=== PATIENT | male | born 1995 | race American Indian/Alaskan Native ===

== ENCOUNTER 2019-12-07 19:04 | Emergency (ER) | payer SELFPAY ==
[2019-12-07 19:14] VITALS: BP 133/87
--- NOTE | 2019-12-07 19:21 | Emergency Department Report ---
ED General Adult HPI - General Chief complaint: Skin Rash Stated complaint: SORE MOUTH/JAW PAIN/RASH Time Seen by Provider: 12/07/19 19:09 Source: patient Mode of arrival: Ambulatory Limitations: No Limitations - History of Present Illness Initial comments: 24 yo AA M Pt complains of lip swelling, irritation, and cracking x 4 days/ States burning and itching. Denies known allergens. Deneis any hx of DM2 or HIV. He rates his pain as a 4/10 in severity. He reports his symptoms initially improved with OTC creams and carmex , but are now worsening. Denies fever or drainage from rash -: Sudden Quality: constant - Related Data Previous Rx's Medication Instructions Recorded Last Taken Type Albuterol INH(or & Nicu Only) 1 puff IH Q4-6H PRN #1 inha 09/04/13 Unknown Rx [ProAir HFA Inhaler] Azithromycin [Zithromax Z-LEAH] 250 mg PO DAILY #6 tab 09/04/13 Unknown Rx Benzonatate [Tessalon Perle] 100 mg PO Q4-6H PRN #15 capsule 09/04/13 Unknown Rx Ibuprofen [Motrin] 800 mg PO TID PRN #20 tablet 09/04/13 Unknown Rx predniSONE [Deltasone] 1 tab PO BID #8 tablet 09/04/13 Unknown Rx Triamcinolone 0.1% [Kenalog 0.1% 1 applic TP TID 7 Days #1 tube 12/07/19 Unknown Rx CREAM] cephALEXin [Keflex] 500 mg PO TID 10 Days #30 cap 12/07/19 Unknown Rx Allergies Allergy/AdvReac Type Severity Reaction Status Date / Time No Known Allergies Allergy Unverified 09/03/13 22:12 ED Review of Systems ROS: Stated complaint: SORE MOUTH/JAW PAIN/RASH Other details as noted in HPI Constitutional: denies: chills, diaphoresis, fever, malaise ENT: denies: throat pain Skin: rash, lesions, pruritus. denies: change in color ED Past Medical Hx - Past Medical History Previous Medical History?: Yes Hx Psychiatric Treatment: Yes (Bipolar, Schizophrenia) - Surgical History Past Surgical History?: No - Social History Smoking Status: Current Every Day Smoker Substance Use Type: None - Medications Home Medications: Home Medications Medication Instructions Recorded Confirmed Last Taken Type Albuterol INH(or & Nicu Only) 1 puff IH Q4-6H PRN #1 inha 09/04/13 Unknown Rx [ProAir HFA Inhaler] Azithromycin [Zithromax Z-LEAH] 250 mg PO DAILY #6 tab 09/04/13 Unknown Rx Benzonatate [Tessalon Perle] 100 mg PO Q4-6H PRN #15 capsule 09/04/13 Unknown Rx Ibuprofen [Motrin] 800 mg PO TID PRN #20 tablet 09/04/13 Unknown Rx predniSONE [Deltasone] 1 tab PO BID #8 tablet 09/04/13 Unknown Rx Triamcinolone 0.1% [Kenalog 0.1% 1 applic TP TID 7 Days #1 tube 12/07/19 Unknown Rx CREAM] cephALEXin [Keflex] 500 mg PO TID 10 Days #30 cap 12/07/19 Unknown Rx ED Physical Exam - General Limitations: No Limitations General appearance: alert, in no apparent distress - Head Head exam: Present: atraumatic, normocephalic - Eye Eye exam: Present: normal appearance - ENT ENT exam: Present: other (dry, fissuring opening noted to corners of mouth with mild tenderness to palpation. No erythema, swelling, ro drainage noted.) - Neck Neck exam: Present: normal inspection - Respiratory Respiratory exam: Absent: respiratory distress - Cardiovascular Cardiovascular Exam: Present: regular rate - Neurological Exam Neurological exam: Present: alert, oriented X3 - Psychiatric Psychiatric exam: Present: normal affect, anxious - Skin Skin exam: Present: warm, dry, intact, normal color. Absent: rash ED Course Vital Signs 12/07/19 19:08 Temperature 97.5 F L Pulse Rate 101 H Respiratory 18 Rate Blood Pressure 133/87 O2 Sat by Pulse 99 Oximetry ED Medical Decision Making - Medical Decision Making Chelitis noted on exam. Pt denies DM2 or HIV. States he has been using all new products due to just getting out of long term. Will try topical steroid and keflex. PT also informed to obtain OTC clotrimazole and apply BID if symptoms do not improve. Recommend f/u with Dr. Macias in 3-5 days. Discussed signs and symptoms of worsening infection that should prompt immediate return to the ED in detail with pt who states understanding. Critical care attestation.: If time is entered above; I have spent that time in minutes in the direct care of this critically ill patient, excluding procedure time. ED Disposition Clinical Impression: Angular cheilitis Disposition: DC- TO HOME OR SELFCARE Is pt being admited?: No Condition: Stable Instructions: Acute Rash (ED) Prescriptions: cephALEXin [Keflex] 500 mg PO TID 10 Days #30 cap Triamcinolone 0.1% [Kenalog 0.1% CREAM] 1 applic TP TID 7 Days #1 tube Referrals: JAREK MACIAS MD [Staff Physician] - 3-5 Days
== END 2019-12-07 19:36 | disposition home or self-care (01) ==
LOC: ED 19:04
DX: K13.0 Diseases of lips (principal); F25.0 Schizoaffective disorder, bipolar type; F17.200 Nicotine dependence, unspecified, uncomplicated; Z79.899 Other long term (current) drug therapy
CPT/HCPCS: 99282

== ENCOUNTER 2019-12-08 08:02 | Emergency (ER) | payer SELFPAY ==
[2019-12-08] MEDS ORDERED: BENZTROPINE 0.5 MG TAB PO ONE (08:37)
[2019-12-08] MEDS ORDERED: risperiDONE 1 MG TAB PO ONE (08:37)
--- NOTE | 2019-12-08 08:41 | Emergency Department Report ---
HPI - General Chief Complaint: Psych Time Seen by Provider: 12/08/19 08:25 - HPI HPI: Room 13 The patient is a 24-year-old male present with a chief complaint of auditory hallucinations. Patient has a history of schizophrenia states he suffers from auditory hallucinations. The patient states he was recently released from [facility] 12/04/2019 has not had any of his psychiatric meds since. Patient states his auditory hallucinations have worsened and voices today told him to kill himself. Patient states he decided to come to [facility] for admission but he was sent here for medical clearance first ED Past Medical Hx - Past Medical History Previous Medical History?: Yes Hx Psychiatric Treatment: Yes (Bipolar, Schizophrenia) - Surgical History Past Surgical History?: No - Family History Family history: no significant - Social History Smoking Status: Current Every Day Smoker (1 pack/day) Substance Use Type: Alcohol (Occasional), Cocaine, Other (Amphetamine) - Medications Home Medications: Home Medications Medication Instructions Recorded Confirmed Last Taken Type Albuterol INH(or & Nicu Only) 1 puff IH Q4-6H PRN #1 inha 09/04/13 Unknown Rx [ProAir HFA Inhaler] Azithromycin [Zithromax Z-LEAH] 250 mg PO DAILY #6 tab 09/04/13 Unknown Rx Benzonatate [Tessalon Perle] 100 mg PO Q4-6H PRN #15 capsule 09/04/13 Unknown Rx Ibuprofen [Motrin] 800 mg PO TID PRN #20 tablet 09/04/13 Unknown Rx predniSONE [Deltasone] 1 tab PO BID #8 tablet 09/04/13 Unknown Rx Triamcinolone 0.1% [Kenalog 0.1% 1 applic TP TID 7 Days #1 tube 12/07/19 Unknown Rx CREAM] cephALEXin [Keflex] 500 mg PO TID 10 Days #30 cap 12/07/19 Unknown Rx ED Review of Systems ROS: Stated complaint: MED CLEARANCE Other details as noted in HPI Constitutional: no symptoms reported Eyes: denies: eye pain ENT: denies: throat pain Respiratory: no symptoms reported Psychiatric: auditory hallucinations Physical Exam - Physical Exam Vital Signs: Vital Signs 12/08/19 08:07 Temperature 97.7 F Pulse Rate 104 H Respiratory 16 Rate Blood Pressure 134/86 [Left] O2 Sat by Pulse 98 Oximetry Physical Exam: GENERAL: The patient is well-developed well-nourished male sitting in chair not appearing to be in acute distress. [] HEENT: Normocephalic. Atraumatic. Extraocular motions are intact. Patient has moist mucous membranes. NECK: Supple. Trachea midline CHEST/LUNGS: Clear to auscultation. There is no respiratory distress noted. HEART/CARDIOVASCULAR: Regular. There is no tachycardia. There is no gallop rub or murmur. ABDOMEN: Abdomen is soft, nontender. Patient has normal bowel sounds. There is no abdominal distention. SKIN: There is no diaphoresis. NEURO: The patient is awake, alert, and oriented. The patient is cooperative. The patient has normal speech MUSCULOSKELETAL: There is no evidence of acute injury. ED Course Vital Signs 12/08/19 08:07 Temperature 97.7 F Pulse Rate 104 H Respiratory 16 Rate Blood Pressure 134/86 [Left] O2 Sat by Pulse 98 Oximetry ED Medical Decision Making - Lab Data Result diagrams: 12/08/19 08:23 12/08/19 08:23 Laboratory Tests 12/08/19 12/08/19 12/08/19 08:23 08:23 08:23 WBC RBC Hgb Hct MCV MCH MCHC RDW Plt Count [place] % (Auto) Add Manual Diff Total Counted Seg Neuts % (Manual) Band Neutrophils % Lymphocytes % (Manual) Reactive Lymphs % (Man) Monocytes % (Manual) Eosinophils % (Manual) Basophils % (Manual) Metamyelocytes % Myelocytes % Promyelocytes % Blast Cells % Nucleated RBC % Seg Neutrophils # Man Band Neutrophils # Lymphocytes # (Manual) Abs React Lymphs (Man) Monocytes # (Manual) Eosinophils # (Manual) Basophils # (Manual) Metamyelocytes # Myelocytes # Promyelocytes # Blast Cells # WBC Morphology Hypersegmented Neuts Hyposegmented Neuts Hypogranular Neuts Smudge Cells Toxic Granulation Toxic Vacuolation Dohle Bodies Pelger-Huet Anomaly Luana Rods Platelet Estimate Clumped Platelets Plt Clumps, EDTA Large Platelets Giant Platelets Platelet Satelliting Plt Morphology Comment RBC Morphology Dimorphic RBCs Polychromasia Hypochromasia Poikilocytosis Anisocytosis Microcytosis Macrocytosis Spherocytes Pappenheimer Bodies Sickle Cells Target Cells Tear Drop Cells Ovalocytes Helmet Cells Mcleod-Kinbra[place] Bodies [place] Rings [place] Cells Bite Cells Crenated Cell Elliptocytes Acanthocytes (Spur) Rouleaux Hemoglobin C Crystals Schistocytes Malaria parasites Kelechi Bodies Hem Pathologist Commnt Sodium 135 L Potassium 3.5 L Chloride 95.4 L Carbon Dioxide 22 Anion Gap 21 BUN 16 Creatinine 1.2 Estimated GFR > 60 BUN/Creatinine Ratio 13 Glucose 111 H Calcium 9.8 Salicylates < 0.3 L Acetaminophen < 5.0 L Plasma/Serum Alcohol 12/08/19 12/08/19 08:23 08:23 WBC 5.9 RBC 5.15 H Hgb 16.6 H Hct 47.0 H MCV 91 MCH 32 MCHC 35 H RDW 13.0 L Plt Count 209 [place] % (Auto) Zinc Plate Grainer Add Manual Diff Complete Total Counted 100 Seg Neuts % (Manual) 52.0 Band Neutrophils % 0 Lymphocytes % (Manual) 27.0 Reactive Lymphs % (Man) 1.0 Monocytes % (Manual) 15.0 H Eosinophils % (Manual) 5.0 H Basophils % (Manual) 0 Metamyelocytes % 0 Myelocytes % 0 Promyelocytes % 0 Blast Cells % 0 Nucleated RBC % Not Reportable Seg Neutrophils # Man 3.1 Band Neutrophils # 0.0 Lymphocytes # (Manual) 1.6 Abs React Lymphs (Man) 0.1 Monocytes # (Manual) 0.9 H Eosinophils # (Manual) 0.3 Basophils # (Manual) 0.0 Metamyelocytes # 0.0 Myelocytes # 0.0 Promyelocytes # 0.0 Blast Cells # 0.0 WBC Morphology Not Reportable Hypersegmented Neuts Not Reportable Hyposegmented Neuts Not Reportable Hypogranular Neuts Not Reportable Smudge Cells Not Reportable Toxic Granulation Not Reportable Toxic Vacuolation Not Reportable Dohle Bodies Not Reportable Pelger-Huet Anomaly Not Reportable Luana Rods Not Reportable Platelet Estimate Consistent w auto Clumped Platelets Not Reportable Plt Clumps, EDTA Not Reportable Large Platelets Not Reportable Giant Platelets Not Reportable Platelet Satelliting Not Reportable Plt Morphology Comment Not Reportable RBC Morphology Normal Dimorphic RBCs Not Reportable Polychromasia Not Reportable Hypochromasia Not Reportable Poikilocytosis Not Reportable Anisocytosis Not Reportable Microcytosis Not Reportable Macrocytosis Not Reportable Spherocytes Not Reportable Pappenheimer Bodies Not Reportable Sickle Cells Not Reportable Target Cells Not Reportable Tear Drop Cells Not Reportable Ovalocytes Not Reportable Helmet Cells Not Reportable Mcleod-[place] Bodies Not Reportable [place] Rings Not Reportable Suad Cells Not Reportable Bite Cells Not Reportable Crenated Cell Not Reportable Elliptocytes Not Reportable Acanthocytes (Spur) Not Reportable Rouleaux Not Reportable Hemoglobin C Crystals Not Reportable Schistocytes Not Reportable Malaria parasites Not Reportable Kelechi Bodies Not Reportable Hem Pathologist Commnt No Sodium Potassium Chloride Carbon Dioxide Anion Gap BUN Creatinine Estimated GFR BUN/Creatinine Ratio Glucose Calcium Salicylates Acetaminophen Plasma/Serum Alcohol < 0.01 - Differential Diagnosis Schizophrenia, auditory hallucination Critical care attestation.: If time is entered above; I have spent that time in minutes in the direct care of this critically ill patient, excluding procedure time. ED Disposition Clinical Impression: Schizophrenia, Auditory hallucinations Disposition: DC/[facility]/PSY UNIT Is pt being admited?: No Does the pt Need Aspirin: No Condition: Fair Referrals: PRIMARY CARE, [Primary Care Provider] - 3-5 Days Time of Disposition: 11:34 (Awaiting placement)
[2019-12-08 08:49] LABS: Hemoglobin 16.6 gm/dl (11.8-15.2); Mean Corpuscular HGB Conc 35 % (32-34); Mean Corpuscular Volume 91 fl (84-94); Platelet Count 209 K/mm3 (140-440); Red Blood Count 5.15 M/mm3 (3.65-5.03)
[2019-12-08 09:07] LABS: BUN/Creatinine Ratio 13; Blood Urea Nitrogen 16 mg/dL (9-20); Calcium 9.8 mg/dL (8.4-10.2); Hemolysis Index 2
[2019-12-08 11:14] LABS: Basophils % (Manual) 0 % (0.0-1.8); Total Cells Counted 100
[2019-12-08 11:16] LABS: Platelet Estimate Consistent w Auto; RBC Morphology Normal
[2019-12-08 12:52] LABS: Benzodiazepines Screen,Urine PRESUMPTIVE NEGATIVE; Cannabinoid Screen,Urine PRESUMPTIVE NEGATIVE; Methadone Screen,Urine PRESUMPTIVE NEGATIVE; Opiate Screen,Urine PRESUMPTIVE NEGATIVE
[2019-12-08 12:54] LABS: Bacteria,Urine 1+ /HPF (Negative); Bilirubin,Urine NEG (Negative); Blood,Urine MOD (Negative); Color,Urine Yellow (Yellow); Mucus,Urine FEW /HPF; Protein,Urine <15 mg/dL mg/dL (Negative)
[2019-12-08 13:08] LABS: Amphetamine Screen,Urine PRESUMPTIVE POSITIVE; Cocaine Screen,Urine PRESUMPTIVE POSITIVE
--- NOTE | 2019-12-09 10:49 | Consultation ---
History of Present Illness - Reason for Consult Consult date: 12/09/19 Reason for consult: psychiatric assessment - History of Present Psychiatric Illness Mr. tran is a 24-year-old -[place] male, the patient in his room alert oriented x3, able to make his needs known dressed appropriately for the occasion and maintain eye contact. The patient stated, "I brought myself here because I am having suicidal thoughts". The patient denies any plan at this time he contract for safety. He also denies homicidal ideations the patient stated that he was diagnosed with schizophrenia and bipolar and polysubstance abuse. He stated he was incarcerated and was released November 30. He reports that he currently taking medication for his bipolar and schizophrenia but has not taken any medication in 4-5 days since he has been released. He does report cocaine abuse and meth in the last 4 days. He reports hearing voices that are telling him to kill himself, states, "but I try to stay active to avoid those voices. He denies visual hallucinations. The patient reports that he is severely depressed, he states that he does not want to get out of bed he does want to take a shower he is not eating and he feels worthless at times. He does report that he is sleeping well. PAST PSYCHIATRIC HISTORY: Diagnoses: Bipolar/schizophrenia/polysubstance abuse Suicide attempts or Self-harm behavior: Yes Prior psychiatric hospitalizations: [facility] Substance Abuse history: Meth marijuana cocaine Previous psychiatric medications tried: Yes Outpatient treatment: Yes PAST MEDICAL HISTORY: Family Psychiatric History None reported or documented SOCIAL HISTORY Marital Status: Single Living Arrangements: Homeless Employment Status: Employed intermittently Access to guns/weapons: Denies Education: College History of Abuse: Denies Legal History: Yes ROS: Constitutional: Negative for weight loss ENT: Negative for stridor Respiratory: Negative for cough or hemoptysis All other systems reviewed and are negative MENTAL STATUS General Appearance and Behavior: age appropriate, good eye contact, cooperative with questioning and polite Cooperation: Cooperative Psychomotor Behavior: within normal limits Mood: OK Affect and affective range: Congruent with stated mood Thought Process: Fluent/Logical and Goal-directed Thought Content: Within reality Speech: Normal volume and Regular rate and rhythm Intellectual Functioning Average Suicidal Ideation: YES Homicidal Ideation: Denies HI Impulse Control: intact Insight and Judgment: poor Memory: Normal Attention: Normal Orientation: alert and orientedx3 RECOMMENDATIONS MEDICATIONS: Start Risperdal 2 mg twice daily Start Cogentin 0.5 mg twice daily Start Remeron 45 mg nightly Risks, benefits and alternatives of medications discussed with the patient, questions answered and consent obtained from patient. PSYCHOTHERAPY: Supportive psychotherapy provided MEDICAL: Per primary team DELIRIUM PRECAUTIONS: Please re-orient patient frequently, keep lights on during the day, and minimize benzodiazepines and opiates as these medications could worsen patient's confusion. COMPUTER APPLICATIONS ENGINEER: DISPOSITION: : The patient meets the requirement for acute inpatient psychiatric treatment at this time, appropriate psychiatric facility upon medical clearance LEGAL STATUS: 1013: Medications and Allergies Allergies Allergy/AdvReac Type Severity Reaction Status Date / Time No Known Allergies Allergy Unverified 09/03/13 22:12 Home Medications Medication Instructions Recorded Confirmed Last Taken Type Albuterol INH(or & Nicu Only) 1 puff IH Q4-6H PRN #1 inha 09/04/13 Unknown Rx [ProAir HFA Inhaler] Azithromycin [Zithromax Z-LEAH] 250 mg PO DAILY #6 tab 09/04/13 Unknown Rx Benzonatate [Tessalon Perle] 100 mg PO Q4-6H PRN #15 capsule 09/04/13 Unknown Rx Ibuprofen [Motrin] 800 mg PO TID PRN #20 tablet 09/04/13 Unknown Rx predniSONE [Deltasone] 1 tab PO BID #8 tablet 09/04/13 Unknown Rx Triamcinolone 0.1% [Kenalog 0.1% 1 applic TP TID 7 Days #1 tube 12/07/19 Unknow n Rx CREAM] cephALEXin [Keflex] 500 mg PO TID 10 Days #30 cap 12/07/19 Unknown Rx Mental Status Exam - Vital signs Last Vital Signs Temp 97.3 F L 12/09/19 08:40 Pulse 107 H 12/09/19 08:40 Resp 18 12/09/19 08:40 BP 109/66 12/09/19 08:40 Pulse Ox 97 12/09/19 08:40 Results Result Diagrams: 12/08/19 08:23 12/08/19 08:23 Abnormal lab results 12/08/19 Range/Units 08:23 Monocytes % (Manual) 15.0 H (0.0-7.3) % Eosinophils % (Manual) 5.0 H (0.0-4.3) % Monocytes # (Manual) 0.9 H (0.0-0.8) K/mm3 All other labs normal.
[2019-12-09] MEDS ORDERED: MIRTAZAPINE 15 MG TAB PO SCH (22:00)
[2019-12-09] MEDS ORDERED: BENZTROPINE 0.5 MG TAB PO SCH (22:00)
[2019-12-09] MEDS ORDERED: risperiDONE 1 MG TAB PO SCH (22:00)
[2019-12-10 02:11] VITALS: BP 122/74
[2019-12-10] MEDS ORDERED: TRIAMCINOLONE 0.1% CREAM 15 GM TP SCH (08:00)
== END 2019-12-10 02:40 ==
LOC: ED 08:02
DX: F20.89 Other schizophrenia (principal); F31.9 Bipolar disorder, unspecified; F17.210 Nicotine dependence, cigarettes, uncomplicated; F14.10 Cocaine abuse, uncomplicated; F15.10 Other stimulant abuse, uncomplicated; Z79.899 Other long term (current) drug therapy
CPT/HCPCS: 36415; 80048; 80307; 80320; 81001; 85007; 85025; G0480